=== PATIENT | female | born 1970 | race Caucasian/White ===

== ENCOUNTER 2018-12-18 00:38 | Emergency (ER) | payer OTHER ==
[2018-12-18 00:49] VITALS: BP 147/88
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
== END 2018-12-18 00:56 | disposition home or self-care (01) ==
LOC: ED 00:38
DX: S01.511A Laceration without foreign body of lip, initial encounter (principal); S80.211A Abrasion, right knee, initial encounter; W18.09XA Striking against other object with subsequent fall, initial encounter; Y93.89 Activity, other specified; Y99.8 Other external cause status